=== PATIENT | male | born 1975 | race Caucasian/White ===

== ENCOUNTER 2016-09-22 07:41 | Day surgery (SDC) | payer BC, OTHER ==
[~2016-09-22 07:41] MED LIST: ACETAMINOPHEN 500 MG TABLET PO PRN; HYDROmorphone HCL 2 MG/ML VIAL IV PRN; MAG HYDROX/ALUMINUM HYD/SIMETH 30 ML UDC PO PRN; MAGNESIUM HYDROXIDE 30 ML UDC PO PRN; ONDANSETRON HCL/PF 2 MG/ML VIAL IV PRN; PROMETHAZINE HCL 25 MG in DEXTROSE 5 % IN WATER 50 ML IV PRN; RINGERS SOLUTION,LACTATED 1,000 ML IV PRN; ZOLPIDEM TARTRATE 5 MG TABLET PO PRN; ceFAZolin SODIUM 1 GM VIAL IV PRN; diphenhydrAMINE HCL 50 MG/ML VIAL IV PRN; oxyCODONE HCL/ACETAMINOPHEN 1 TAB TABLET PO PRN
[2016-09-22] MEDS ORDERED: RINGERS SOLUTION,LACTATED 1,000 ML IV ONE (10:33)
--- NOTE | 2016-09-22 11:57 | OR ---
Operative Report - Dictated Report Narrative: Date: 09/22/2016 Physician: Dudley Earl M.D. Immunology Specialist: Ari Orr PA-C Preoperative diagnosis: Left Shoulder SLAP tear, long head of the biceps tear, subacromial impingement Postoperative diagnosis: Left Shoulder SLAP tear, long head of the biceps tear, anterior labral tear, subacromial impingement Procedure: Left shoulder arthroscopy with anterior labral repair, biceps tenodesis, subacromial decompression Anesthesia: General plus regional Complications: None Estimated blood loss: Minimal Specimens: None Retained implants: [employer] bio Raptor anchor 1, [employer] 9 x 15 mm PEEK anchor Drains: None Indications: Barry Is a 41 year-old male who has been followed in my clinic with complaints of shoulder pain consistent with superior labral tear, biceps tendon pathology, and subacromial impingement. Physical exam and diagnostic imaging were consistent with his complaints and concern for SLAP tear, biceps tendon tear, and subacromial impingement. Conservative measures have failed including , but not limited to, passage of time, activity modification, medications, physical therapy/home exercise program, or injections. The risks, benefits, and alternatives were discussed in clinic. The risks being , bleeding, infection, blood clots, nerve, tendon, ligament, blood vessel injury, persistent pain, arthrosis, stiffness, need for prolonged therapy, need for additional procedures, and persistent symptoms. Consent was obtained in the clinic. Procedure: After marking the correct extremity in the preoperative holding area, a timeout was performed in the operating room. IV antibiotics consisting of 2 g of Ancef were administered prior to the procedure. A general followed by regional anesthetic was induced by the nurse central office supervisor. This was in the supine position, then the patient was transitioned to a beachchair position with all bony prominences well-padded, head in neutral, the nonoperative arm well supported, and the legs padded with SCDs in place. The operative shoulder was then prepped and draped in a standard sterile fashion. After marking out the bony landmarks, saline was infused into the joint through a posterior lateral portal site. A casey incision was made, and the blunt trocar and cannula was introduced into the shoulder joint. An anterior working portal was placed in the rotator cuff interval using a spinal needle for guidance. Upon initial evaluation, the biceps tendon showed longitudinal tearing starting at the proximal portion of the bicipital groove. The middle glenohumeral ligament was intact. Subscapularis tendon was frayed but intact. The glenoid showed grade 2 and scattered grade 3 chondral changes at the anterior inferior portion. The humeral head articular surface showed no chondral changes. The anterior labrum was torn from approximately the 8:00 to 10 o'clock position. The superior labrum was torn and peeled back off of the glenoid. The pouch was of normal caliber with no loose bodies. The posterior labrum was and tacked. The supraspinatus tendon was intact. The infraspinatus tendon was intact. At this point attention was turned to the anterior labrum. A second anterior accessory portal was made using a spinal needle for guidance and a second cannula was advanced into the joint through the rotator interval. A periosteal elevator was used to elevate the remaining portion of the anterior labrum off of the glenoid. The rim of the glenoid was then prepared using a 4.0mm shaver. A [employer] bio Raptor anchor was then placed at approximately the 9 o' clock position. One suture limb was brought around the anterior labrum using a bird beak. This was then tied down restoring the anterior bumper function of the labrum. Next, we turned our attention back to the biceps tendon this was tagged with a 2-0 PDS suture and then tenotomized at the bicipital anchor. Shaver was used to debride the residual superior labral stump. Attention was then turned to the subacromial space. Subacromial bursectomy was performed utilizing the prior portals. The coracoacromial ligament was intact. The bursal side of the rotator cuff demonstrated no obvious tearing. The acromial arch demonstrated mild lateral and anterior hooking with concern for subacromial impingement. A 5.5 mm bur was used to perform acromioplasty to decompress the subacromial space. We then turned our attention back to the biceps tendon. Our initial anterolateral portal was extended distally approximately 3 cm. Blunt dissection was carried down through the anterior aspect of the deltoid identifying our PDS suture and the bicipital groove. The sheath of the bicipital groove was opened longitudinally with a sharp knife revealing the biceps tendon. This was then delivered out through the wound. We then proceeded with biceps tenodesis using the [employer]hew bicep tear tenodesis system. A guidewire was placed in the center of the bicipital groove at the appropriate position. Our tendon was sized with the tendon formed and found to be 9 mm. A 9 mm acorn reamer was advanced to a depth of 20 mm over the guidewire. The guidewire was then removed and the tendon fork was used to advance the tendon into the tunnel at the appropriate tension. This was held in place with the central pin tunnel as well as 2 accessory Anaid wires proximally and distally to prevent rotation of the tendon when placing our interference screw. We then placed a 9 x 15 mm interference screw to secure the tendon in our tunnel. The proximal stump of the tendon was debrided with sharp knife. At this point we felt we had addressed all relevant pathology and the wounds were thoroughly irrigated. 3-0 Vicryl was placed in the subcutaneous tissue. The biceps tenodesis incision as well as the portal sites were closed with interrupted nylon. Dressings consisting of Xeroform, 4 x 4, ABD, soft roll, and tape were applied. All sponge, needle, blade, and instrument counts were correct prior to closing the wounds. The patient was awoken and transferred to the postanesthesia care unit in stable condition.
[2016-09-22 15:14] VITALS: BP 125/72
[2016-09-22] MEDS ORDERED: SENNOSIDES/DOCUSATE SODIUM 1 TAB TABLET PO SCH (21:00)
== END 2016-09-22 07:42 | disposition home or self-care (01) ==
LOC: AMB 07:41
PROVIDERS: ATTEND Orthopaedic Surgery
PROC: 0LS24ZZ Reposition Left Shoulder Tendon, Percutaneous Endoscopic Approach (ICD-10-PCS; 2016-09-22)
PROC: 0RNK4ZZ Release Left Shoulder Joint, Percutaneous Endoscopic Approach (ICD-10-PCS; 2016-09-22)
PROC: 0MM24ZZ Reattachment of Left Shoulder Bursa and Ligament, Percutaneous Endoscopic Approach (ICD-10-PCS; principal; 2016-09-22 09:25)
DX: S43.492A Other sprain of left shoulder joint, initial encounter (principal); S46.112A Strain of muscle, fascia and tendon of long head of biceps, left arm, initial encounter; M75.42 Impingement syndrome of left shoulder; Z87.891 Personal history of nicotine dependence; Z68.26 Body mass index [BMI] 26.0-26.9, adult